=== PATIENT | male | born 1995 ===

== ENCOUNTER 2017-09-13 15:59 | Emergency (ER) | payer SELFPAY ==
--- NOTE | 2017-09-13 17:56 | C.PDOC ---
History Of Present Illness 21 year old male presents to the ED for evaluation of fever and cough which began 5 days ago. Has tried OTC cough medicine without relief. Denies chest pain or SOB. Time Seen by Provider: 09/13/17 17:35 Chief Complaint (Nursing): Flu-like Symptoms History Per: Patient History/Exam Limitations: no limitations Onset/Duration Of Symptoms: Other (1 month ) Current Symptoms Are (Timing): Still Present Associated Symptoms: Fever, Cough. denies: Nausea, Vomiting Additional History Per: Patient Past Medical History Reviewed: Historical Data, Nursing Documentation, Vital Signs Vital Signs: Last Vital Signs Temp 99 F 09/13/17 18:48 Pulse 84 09/13/17 18:48 Resp 16 09/13/17 18:48 BP 118/68 09/13/17 18:48 Pulse Ox 100 09/13/17 21:46 - Medical History PMH: No Chronic Diseases Surgical History: No Surg Hx Family History: States: Unknown Family Hx - Social History Hx Alcohol Use: No Hx Substance Use: No Review Of Systems Constitutional: Positive for: Fever Respiratory: Positive for: Cough Gastrointestinal: Negative for: Nausea, Vomiting Physical Exam - Physical Exam Appears: Well, Non-toxic, No Acute Distress Skin: Normal Color, Warm, Dry, No Diaphoretic Head: Atraumatic, Normacephalic Eye(s): bilateral: Normal Inspection, EOMI Ear(s): Bilateral: Normal Nose: Normal, No Discharge Oral Mucosa: Moist Throat: Normal, No Erythema, No Exudate Neck: Supple Chest: Symmetrical, No Deformity, No Tenderness Cardiovascular: Rhythm Regular, No Murmur Respiratory: Normal Breath Sounds, No Rales, No Rhonchi, No Wheezing Extremity: Normal ROM, Capillary Refill (less than 2 seconds ) Neurological/Psych: Oriented x3, Normal Speech ED Course And Treatment O2 Sat by Pulse Oximetry: 100 (on RA) Pulse Ox Interpretation: Normal Medical Decision Making Medical Decision Making: Patient with multi-symptom complaints, for 5 days. Patient has not received Flu vaccine this season. Based on history, exam findings and widespread influenza symptoms consistent with Influenza. Patient appears non-toxic and in no distress. He is out of time frame for Tamiflu. Patient advised to rest, drink fluids and take medications for supportive treatment. Patient stable for discharge and given follow up instructions. Disposition Counseled Patient/Family Regarding: Diagnosis, Need For Followup, Rx Given - Disposition Disposition: HOME/ ROUTINE Disposition Time: 17:54 Condition: STABLE Additional Instructions: Usted tiene influenza viral. [place] Tylenol o Motrin alternando cada 4-6 horas para [place]ie[place] 100.4F o superior. [place]cansa y steve muchos lquidos. Pruebe alivio sintomtico. Los sntomas pueden durar de 7 a 10 lujan. Kelsie un seguimiento con jacques mdico primario o clnica en 2-5 lujan para charly evaluacin adicional. Regrese al departamento de emergencia en cualquier momento si los sntomas persisten o empeoran. Prescriptions: Benzonatate [Tessalon Perles] 100 mg PO TID #30 sgl Ibuprofen [Motrin] 1 tab PO TID PRN #30 tab PRN Reason: Pain Instructions: Flu, Adult (DC) Forms: [place] (Beninese), Work Excuse Print Language: UPPER SORBIAN - POA Present On Arrival: None - Clinical Impression Clinical Impression: Influenza-like illness - PA / MANAGER ESTATE / Resident Statement MD/DO has reviewed & agrees with the documentation as recorded. - Scribe Statement The provider has reviewed the documentation as recorded by the Scribe (Silvia Erazo) All medical record entries made by the Scribe were at my direction and personally dictated by me. I have reviewed the chart and agree that the record accurately reflects my personal performance of the history, physical exam, medical decision making, and the department course for this patient. I have also personally directed, reviewed, and agree with the discharge instructions and disposition.
[2017-09-13 18:49] VITALS: BP 118/68; PULSE 84; RESP 16; TEMP 99
[2017-09-13 21:11] VITALS: O2SAT 100
== END 2017-09-13 18:48 | disposition home or self-care (01) ==
LOC: C.ER 15:59
DX: J11.1 Influenza due to unidentified influenza virus with other respiratory manifestations (principal)